=== PATIENT | male | born 1950 | race Caucasian/White ===

== ENCOUNTER 2017-12-30 22:41 | Inpatient (IN) | payer OTHER, BC ==
[~2017-12-30] VITALS: Ht 180.3 cm; Wt 92.1 kg
[2017-12-30 22:41] VITALS: BP 103/69
--- NOTE | 2017-12-30 22:41 | NUR ---
67/M BIBA FROM HOME FOR ALOC, HYPOTENSION. REPORTS PT HAD SUDDEN ONSET ALOC 3 HOURS AGO, LAST NORCO TAKEN 3 HRS AGO. PER EMS, PT HAD BP 90/60, HR 106, BS 168, ALTERED ON SCENE. PT AOX1 TO NAME, GCS 6, SEVERE WEAKNESS NOTED. SKIN INTACT, DRY, JAUNDICED, PALE. LUNG SOUNDS CLEAR BL. ABD SOFT ROUND LARGE NONTENDER ASCITIC, BS ACTIVE X4. PT WAS STARTED ON 500ML NS BOLUS, IV ON R AC 20G. L UPPER CHEST LILY-CATH NOTED. BLE EDEMA +4 PITTING NOTED. PT PLACED ON MONITOR. ER MD MADE AWARE.
--- NOTE | 2017-12-30 22:41 | NUR ---
[facility]. PT TRANSFERED FROM [facility] TO BED 1. EMS, NURSNIG STAFF, ANF DR. RED AT BEDSIDE FOR EVALUATION.
--- NOTE | 2017-12-30 23:00 | NUR ---
PT DRY HEAVING, EMESIS X1. ER MADE AWARE.
[2017-12-30] MEDS ORDERED: NACL 0.9% 500 ML IV SCH (23:06)
[2017-12-30] MEDS ORDERED: ACET-787 PO (23:09)
[2017-12-30] MEDS ORDERED: LACT10SO60 PO (23:09)
[2017-12-30] MEDS ORDERED: HYDR10TA1 PO (23:09)
[2017-12-30] MEDS ORDERED: ETOMIDATE 20 MG/10 ML VIAL IVP ONE (23:10)
[2017-12-30] MEDS ORDERED: PROPOFOL 1000 MG/100 ML PREMIX 100 ML IV ONE (23:10)
[2017-12-30] MEDS ORDERED: B2/V1TAB PO (23:10)
[2017-12-30] MEDS ORDERED: SUCCINYLCHOLINE CHLORIDE 200 MG/10 ML VIAL IVP ONE (23:10)
[2017-12-30] MEDS ORDERED: PIPERACILLIN/TAZOBACTAM 4.5 GM in DEXTROSE 5% 100 ML IV ONE (23:10)
[2017-12-30] MEDS ORDERED: ZAR2.5 PO (23:11)
[2017-12-30] MEDS ORDERED: SAL1 PO (23:12)
[2017-12-30] MEDS ORDERED: PANT40EC28 PO (23:12)
--- NOTE | 2017-12-30 23:15 | NUR ---
PT'S FAMILY EXPRESSING CONCERNS ABOUT INTUBATION. EXPLAINED TO PT THAT PT IS VOMITING WITH ALTERED CONSCIOUSNESS, MAY NEED TO BE INTUBATED TO PREVENT RESPIRATORY ARREST. PT AGREED TO HAVE FULL TREATMENT/FULL CODE FOR PT. MADE AWARE, MD TO SPEAK WITH PT'S FAMILY.
[2017-12-30] MEDS ORDERED: PIPERACILLIN/TAZOBACTAM 2.25 GM VIAL IV ONE (23:23)
--- NOTE | 2017-12-30 23:30 | NUR ---
DR RED SPOKE WITH PT'S FAMILY. PT'S FAMILY AGREED TO INTUBATION AND FULL TREATMENT.
--- NOTE | 2017-12-30 23:45 | NUR ---
PATIENT INTUBATED BY DR. RED WITH 7.5 ETT @25CM TEETH. BREATH SOUNDS BILATERAL, ETCO2 POSITIVE FOR GAS EXCHANGE, HR 94 SAO2-100% RR 14BPM. X-RAY DONE WHICH CONFIRMED PLACEMENT OF ETT. PLACED ON VENTILATOR AC-14, VT-500, FIO2-50% PEEP+5, ABG DONE AT 0047 AND RESULTS IN SYSTEM. NO SECRETIONS AT THIS TIME SO WAS UNABLE TO OBTAIN SPUTUM CULTURE
--- NOTE | 2017-12-30 23:45 | NUR ---
TIMEOUT PERFORMED FOR INTUBATION. DR RED, 2 FLIGHT OPERATIONS ENGINEER, EMT AND RT AT BEDSIDE. VSS. INTUBATION PROCEDURE STARTED.
--- NOTE | 2017-12-30 23:46 | NUR ---
PT INTUBATED WITHOUT PROBLEMS. PT TOLERATED WELL. TIME OUT CALLED. RT, RN, EMT AND MD AT BEDSIDE. FAMILY AT BEDSIDE
[2017-12-30 23:50] VITALS: BP 92/65
[2017-12-30 23:50] LABS: BASOPHILS % (AUTO) 0.3 % (0.0-2.0); HEMOGLOBIN 11.5 g/dL (12.0-18.0); LYMPHOCYTES # (AUTO) 0.3 K/uL (2.0-11.5); MEAN CORPUSCULAR HEMOGLOBIN 38 pg (27-31); MEAN CORPUSCULAR HGB CONC 33 g/dL (33-37); MEAN CORPUSCULAR VOLUME 114.2 fL (80-94); MONOCYTES # (AUTO) 0.9 K/uL (0.8-1.0); MONOCYTES % (AUTO) 10.6 % (1.7-9.3); NEUTROPHILS # (AUTO) 7.7 K/uL (1.8-7.7); NEUTROPHILS % (AUTO) 85.7 % (42.2-75.2); PLATELET COUNT (AUTO) 68 K/uL (140-450); RED BLOOD CELL COUNT(AUTO) 3.06 MIL/uL (4.20-6.10)
[2017-12-31] VITALS (64 sets, daily range): BP systolic 78–116; BP diastolic 28–71
--- NOTE | 2017-12-31 00:01 | NUR ---
PER MD, INCREASE PROPOFOL INFUSION TO 10MCG/KG/ML. VSS AT THIS TIME.
[2017-12-31 00:10] LABS: PROTHROMBIN TIME 16.4 secs (10.8-13.4)
[2017-12-31 00:11] LABS: ALBUMIN 2.5 g/dL (3.4-5.0); ANION GAP 18.4 (8-16); ASPARTATE AMINOTRANSFERASE 59 U/L (15-37); CARBON DIOXIDE 16.5 mmol/L (21-32); CHLORIDE 104 mmol/L (98-107); CREATININE 1.6 mg/dL (0.7-1.3); GFR ARICAN-AMERICAN 56 mL/min (>90); GLUCOSE 123 mg/dL (74-106); LIPASE 559 U/L (73-393); POTASSIUM 5.9 mmol/L (3.5-5.1); SODIUM SERUM 133 mmol/L (136-145)
[2017-12-31 00:14] LABS: LYMPHOCYTES % (AUTO) 3.4 % (20.5-51.1); RED CELL DISTRIBUTION WIDTH 20.6 % (11.6-13.7)
--- NOTE | 2017-12-31 00:15 | NUR ---
PT TO CT VIA LUCY WITH RT/RN AND EMT IN STABLE CONDITION. FAMILY INFORMED OF PT STATUS AT THIS TIME, APPROPRIATE QUESTIONS ASKED . FAMILY TEARFUL AND EMOTIONAL AT THIS TIME.
[2017-12-31 00:26] LABS: UREA NITROGEN, BLOOD 109 mg/dL (7-18)
[2017-12-31 00:27] LABS: CREATINE KINASE MB 5.7 ng/mL (0-3.6)
[2017-12-31] MEDS ORDERED: NACL 0.9% 1,000 ML IV ONE ×2 (00:45→02:05)
--- NOTE | 2017-12-31 01:04 | NUR ---
ER MD AT BEDSIDE TO SPEAK WITH PT'S FAMILY. BP 84/59, HR 83, SPO2 100% ON VENT, RR 14. MD AWARE.
[2017-12-31 01:05] LABS: APPEARANCE,URINE CLEAR (CLEAR); BLOOD, URINE TRACE-I (NEGATIVE); COLOR,URINE YELLOW (YELLOW); LEUKOCYTE ESTERASE ,URINE NEGATIVE (NEGATIVE); NITRITE, URINE NEGATIVE (NEGATIVE); UGLUCOSE NEGATIVE (NEGATIVE)
[2017-12-31 01:11] LABS: BARBITURATE, URINE NEG. ng/ml (NEG <=200); BENZODIAZEPINE, URINE NEG. ng/mL (NEG <=200); CANNABINOID, URINE NEG. ng/mL (NEG <=50); COCAINE, URINE NEG. ng/mL (NEG <=300); OPIATE, URINE POS. ng/mL (NEG <=2000); PHENCYCLIDINE SCREEN,URINE NEG. ng/mL (NEG <=25)
--- NOTE | 2017-12-31 01:20 | NUR ---
RT AT BEDSIDE. PT STARTING TO BECOME RESPONSIVE, MOVING ARMS, PER ER MD, INCREASE PROPOFOL TO 15MCG/KG/HR. VS NOTED.
[2017-12-31] MEDS ORDERED: ROCURONIUM 50 MG/5 ML VIAL IV ONE ×2 (01:35→01:55)
[2017-12-31] MEDS ORDERED: LACTULOSE 20 GM/30 ML UDC PO ONE (01:40)
--- NOTE | 2017-12-31 01:40 | NUR ---
NOTIFIED BY PT'S FAMILY THAT PT IS STILL BECOMING MORE RESPONSIVE, LIFTING R ARM UP. NOTIFIED MD, PER MD, INCREASE PROPOFOL TO 20MCG/KG/MIN. WILL MONITOR PT.
--- NOTE | 2017-12-31 01:45 | NUR ---
INDIVIDUAL HUBERT RANGEL UNAVAILABLE FROM [facility] AT THIS TIME, CALLED CHEMISTRY RESEARCH ASSISTANT
[2017-12-31] MEDS ORDERED: ONDANSETRON 4 MG/2 ML VIAL IVP PRN (01:55)
[2017-12-31] MEDS ORDERED: ACETAMINOPHEN 325 MG TAB PO PRN (01:55)
--- NOTE | 2017-12-31 02:20 | NUR ---
PT WAS AMBU BAG FROM ER TO ICU 3, WITHOUT ANY INCIDENTS.PLACED PT ON THE VENT WITH THE SAME VENT SETTINGS , VENT CK DONE, NO DISTRESS NOTED, PT IS ON PROPOFOL
--- NOTE | 2017-12-31 02:20 | NUR ---
PT STILL TRYING TO LIFT R ARM OCCASIONALLY, VS NOTED, ADMINISTERED ROCURONIUM IVP ORDERED. NG TUBE INSERTED TO R NARE, PT TOLERATED WELL.
--- NOTE | 2017-12-31 02:21 | NUR ---
DECREASE PROPOFOL TO 15MCG/KG/MIN PER MD
--- NOTE | 2017-12-31 02:29 | NUR ---
XR TO VERIFY NG PLACEMENT ON ICU, ENDORSED LACTULOSE ADMINISTRATION TO SAAS ARCHITECT.
--- NOTE | 2017-12-31 02:30 | NUR ---
Patient will be admitted to care of DR. BYRD. Admited to ICU. Will go to room 3. Belongings list completed. Report to BEATA ALFORD.
--- NOTE | 2017-12-31 02:30 | NUR ---
RECEIVED PT FROM ER VIA GURNEY.PT TRANSFERRED TO ICU 3.MONITORS ATTACHED.ST WITH BBB NOTED ON MONITOR.ORALLY INTUBATED FIO2 40% TV 500 AC14 PEEP 5.W/NGT TO RT NARES INTACT.CXR FOR PLACEMENT VERIFICATION DONE.AWAITING RESULT.W/LILY CATH TO RT CHEST INTACT.PROPOFOL 15 MCG/KG/MIN. PERIPHERAL IV TO RT G22 INTACT INFUSING ORDERED IVF.ABDOMEN DISTENDED.W/ JONES CATHETER TO BSD DRAINING SMALL AMT OF YELLOW URINE.W/PITTING EDEMA +3 TO BLE AND BOTH HANDS.SKIN INTACT.FLACC 0
[2017-12-31 02:38] LABS: BILIRUBIN,URINE 1+ (NEGATIVE)
--- NOTE | 2017-12-31 02:41 | NUR ---
Note aide in ED - 12/31/17 at 0249 by VIRAL Patient will be admitted to care of DR. BYRD. Admited to ICU. Will go to room 3. Belongings list completed. Report to BEATA ALFORD.
[2017-12-31] MEDS: NACL 0.9% 1,000 ML IV SCH ×2 (02:59→15:45)
[2017-12-31 03:15] LABS: FREE T4 (FREE THYROXINE) 1.05 ng/dL (0.76-1.46); MAGNESIUM 2.7 mg/dL (1.8-2.4); PHOSPHORUS 4.9 mg/dL (2.5-4.9); THYROID STIMULATING HORMONE 2.65 uIU/mL (0.34-3.74)
--- NOTE | 2017-12-31 03:46 | NUR ---
DR RHODES AT BEDSIDE.SPOKE WITH PTS AND DAUGHTER.
[2017-12-31] MEDS ORDERED: DEXTROSE 50% 50 ML SYR IVP PRN (03:55)
[2017-12-31] MEDS ORDERED: SODIUM POLYSTYRENE 15 GM/60 ML UDBTL NG ONE (03:55)
--- NOTE | 2017-12-31 04:00 | NUR ---
oral care using vap kit rendered.pt afebrile.flacc 0.repositioned.
--- NOTE | 2017-12-31 04:15 | NUR ---
NOTED NGT COILED IN THE MOUTH.REMOVED.OGT INSERTED, PLACEMENT VERIFIED WITH TIEN RUSSO RN. RODOLFO GRAJEDA.FLACC 0.
[2017-12-31] MEDS ORDERED: LACTULOSE 20 GM/30 ML UDC NG ONE (05:00)
--- NOTE | 2017-12-31 05:25 | NUR ---
phone call to after hour pharmacist regarding zosyn, made aware the last dose was given at 2358 in er, she said ok to give now.
[2017-12-31] MEDS: PIPER/TAZO 2.25GM/D5W PREMIX 50 ML IV SCH ×3 (05:29→21:06)
[2017-12-31] MEDS ORDERED: PIPERACILLIN/TAZOBACTAM 2.25 GM VIAL IV ONE (05:37)
--- NOTE | 2017-12-31 06:51 | NUR ---
REC'D PT ON [place] VENT SETTINGS AC 14 VT 5OO PEEP 5 FIO2 50% ALARMS ON AND AUDIBLE VENT IS PLUGGED INTO RED OUTLET, AMBU BAG AT SIDE OF VENT, SXN PT SMALL AMT OF FROTHY WHITE SECRETIONS, B\S ARE CLEAR, PT IS ORALLY INTUBATED WITH 7.5 ET TUBE SECURED WITH ANCHOR FAST AT 25 CM AT MIDLINE AND SKIN INTEGRITY IS INTACT. PT IS RESTING WITH NO SIGNS OF DISTRESS NOTED Addendum: 12/31/17 at 0753 by Anita Turner RT fio2 40%
[2017-12-31] MEDS ORDERED: LORazepam 2 MG/ML VIAL IVP SCH (07:05)
--- NOTE | 2017-12-31 07:30 | NUR ---
RECEIVED PT FROM PM NURSE, PT ON PROPOFOL DRIP, UNABLE TO FOLLOW COMMANDS. PUPILS SLUGGISH. BEDSIDE MONITOR SHOWS ST-SR. ETT TO VENT WITH FIO2=40%, TV 500, RR 14, PEEP 5. PT ABD EXTENDED, BLE HAS PITTING EDEMA +3, JONES CATH IN PLACE WITH SMALL AMOUNT OF CLOUDY URINE NOTED. ALL EXTREMITIES ARE FLACCID. PT HAS IV TO RIGHT AC AND PERMA CATH TO RIGHT CHEST, BOTH ARE INTACT AND PATENT. REDNESS TO SACRAL AREA NOTED AND BRUISE TO RIGHT FOOT THE SECOND DIGITS NOTED. HOB HOB 30 DEGREES WITH LOW BED POSITION, CALL LIGHT IN REACH , WILL CONTINUE TO MONITOR.
[2017-12-31 07:32] LABS: BASOPHILS % (AUTO) 0.4 % (0.0-2.0); EOSINOPHILS % (AUTO) 0.1 % (0.0-4.0); HEMATOCRIT 40.4 % (36-52); LYMPHOCYTES # (AUTO) 0.5 K/uL (2.0-11.5); LYMPHOCYTES % (AUTO) 6.8 % (20.5-51.1); MEAN CORPUSCULAR HEMOGLOBIN 38 pg (27-31); MEAN CORPUSCULAR HGB CONC 32 g/dL (33-37); MEAN CORPUSCULAR VOLUME 116.7 fL (80-94); MONOCYTES # (AUTO) 0.4 K/uL (0.8-1.0); MONOCYTES % (AUTO) 5.3 % (1.7-9.3); NEUTROPHILS % (AUTO) 87.4 % (42.2-75.2); PLATELET COUNT (AUTO) 103 K/uL (140-450); RED BLOOD CELL COUNT(AUTO) 3.46 MIL/uL (4.20-6.10); RED CELL DISTRIBUTION WIDTH 21.6 % (11.6-13.7); WHITE BLOOD COUNT (AUTO) 6.8 K/uL (4.8-10.8)
[2017-12-31 07:39] LABS: CHOL/HDL RATIO 5.3 (1-4.5)
[2017-12-31] MEDS ORDERED: PROPOFOL 1000 MG/100 ML PREMIX 100 ML IV PRN (08:00)
[2017-12-31] MEDS: BLOOD GLUCOSE MONITORING 1 DEV DEV FS SCH ×4 (08:11→21:05)
--- NOTE | 2017-12-31 08:30 | NUR ---
HOLD PROPOFOL DRIP AT 0815, CHARGE NURSE VAISHALI AND DR. OSMAN AWARE. THEY ALSO AWARE PT STILL UNRESPONSIVE AFTER HOLD PROPOFOL. MAGNUS CARE GIVEN AND ORAL CARE GIVEN.
[2017-12-31] MEDS: DOCUSATE SODIUM 100 MG GELCAP PO SCH ×2 (08:53→21:06)
[2017-12-31] MEDS: PANTOPRAZOLE 40 MG INJ VIAL IVP SCH (08:55)
--- NOTE | 2017-12-31 09:02 | NUR ---
PATIENT HAS BEEN SCREENED AND CATEGORIZED HIGH NUTRITION RISK. PATIENT WILL BE SEEN WITHIN 1-2 DAYS OF ADMISSION. 12/31/17 01/01/[address]
--- NOTE | 2017-12-31 09:16 | NUR ---
vent check, no sxn needed airway is patent and pt is resting
[2017-12-31] MEDS ORDERED: NACL 0.9% 500 ML IV SCH (10:55)
--- NOTE | 2017-12-31 10:55 | NUR ---
DR. ORDONEZ NEPHROLOGY IN TO CHECK PATIENT AND HAVE COMMUNICATION WITH PT'S AND DAUGHTER.
--- NOTE | 2017-12-31 11:18 | NUR ---
VENT CHECK PT 25 CM LIP LINE CLEAR BILAT BS NO SUCTION NEEDED AT THIS TIME SUPER STERNAL RETRACTIONS INCREASED RESPIRATORY EFFORT. FAMILY AT BEDSIDE
[2017-12-31 11:34] LABS: CARBON DIOXIDE 13.3 mmol/L (21-32); CREATININE 1.9 mg/dL (0.7-1.3)
--- NOTE | 2017-12-31 11:45 | NUR ---
MADE CHARGE NURSE VAISHALI AND DR. OSMAN AWARE PT STILL UNRESPONSIVE.
[2017-12-31] MEDS: ALBUMIN HUMAN 25% 100 ML IV SCH ×2 (12:04→21:06)
[2017-12-31] MEDS: HYDROCORTISONE NA SUCC 100 MG/2 ML VIAL IV SCH ×2 (12:04→21:06)
[2017-12-31 12:25] LABS: POTASSIUM 6.3 mmol/L (3.5-5.1)
--- NOTE | 2017-12-31 12:25 | NUR ---
CRITICAL REPORT K 6.3, BUN 115, AND CA 7.7 RECEIVED, REPORT TO DR. TAYLOR.
[2017-12-31] MEDS ORDERED: SODIUM BICARBONATE 8.4% 50 MEQ in NACL 0.9% 1,000 ML IV SCH (12:30)
[2017-12-31] MEDS ORDERED: INSULIN REGULAR, HUMAN 100 UNIT/ML VIAL IV SCH (12:36)
[2017-12-31] MEDS ORDERED: DEXTROSE 50% 50 ML SYR IVP SCH ×2 (12:37→20:30)
[2017-12-31] MEDS ORDERED: LACTULOSE 20 GM/30 ML UDC PO SCH ×2 (13:00→18:00)
[2017-12-31] MEDS ORDERED: SODIUM BICARBONATE 8.4% PFS 50 MEQ/50 ML SYR IVP SCH (13:21)
--- NOTE | 2017-12-31 13:35 | NUR ---
VENT CHECK DONE PT SLEEPING RESPONDS TO STIMULI FAMILY AT BEDSIDE SUCTIONED MODERATE AMOUNT OF THIN YELLOW SECRETIONS REDUCED FIO2 TO 30%
--- NOTE | 2017-12-31 13:53 | NUR ---
FREQUENT NON-PURPOSEFUL MOVEMENT NOTED. FAMILY AT BEDSIDE, RESTARTED PROPOFOL DRIP AT 5 MCG/KG/MIN
[2017-12-31] MEDS ORDERED: MAGNESIUM CITRATE 300 ML BTL PO SCH (14:30)
--- NOTE | 2017-12-31 15:10 | NUR ---
VENT CHECK, NO SXN NEEDED PT RESTING DECREASED FIO2 TO 28%
--- NOTE | 2017-12-31 15:20 | NUR ---
TURNED AND REPOSITIONED PT, PT HAD LARGE AMOUNT OF LOOSE BM. CLEANED PT. NOTIFIED DR. TAYLOR REGARDING BM AND CITROMA ORDER. PER DR. TAYLOR, HOLD CITROMA AND WAIT FOR 1630 AMMONIA, IF IT IS STILL HIGH, GIVE CITROMA, IF IT IS DECREASED, SHE WILL CANCEL THE ORDER. WILL CARRY OUT.
--- NOTE | 2017-12-31 15:54 | NUR ---
WOUND CARE EVALUATION NOTE: REASON FOR EVALUATION: LOW KEHINDE SCORE SKIN ASSESSMENT DONE WITH PRIMARY RN WITH THIS 67 Y/O MALE PT ADMITTED TO [facility] WITH INITIAL DX. ALOC, AND ABNORMAL LABS. PAST MEDICAL HX INCLUDES HTN, COPD, DM, A FIB,AND 12/16/2017 AY [facility] FOR IMMUNO THERAPY. ALL ABOVE INFORMATION OBTAINED FROM ADMISSION H&P. LABS ARE WBC 9.0, H/H 11.5/35, GLUCOSE 111 AND ALBUMIN 2.5. PT IS AWAKE. SKIN IS COLD AND DRY, UPPER EXTREMITIES MULTIPLE ECCHYMOSIS. BLE NO HAIR GROWTH, +3 EDEMA. DORSAL PEDAL PULSES UNABLE TO PALPATE DUE TO EDEMA. CAPILLARY REFILLED < 2 SEC. INCONTINENT OF BOWEL AND X1 DURING ASSESSMENT. PLAN OF CARE DISCUSSED WITH PRIMARY RN. AT BEDSIDE PLAN DISCUSSED. INTEGUMENTARY: -PRESSURE INJURY STAGE 1 TO SACROCOCCYX, 4X2CM -IAD TO RIGHT AND LEFT INNER BUTTOCKS EXTENDED TO PERIANAL SKIN INTACT. -OLD HEALED SCARS TO RLE -RIGHT 2ND TOE, BRUISES SKIN INTACT. (PER IT GOT HIT BY A CANE) RECOMMENDATIONS: -KEEP SKIN DRY AND CLEAN AT ALL TIMES, PLEASE CHECK Q2H AND PRN FOR INCONTINENCY OF BOWEL AND BLADDER. -APPLY HYDRAGUARD TO SACRALCOCCYX AND R/L INNER BUTTOCKS BIDWC AND PRN IF SOILING -APPLY FORM DRESSING TO SACROCOCCY Q7 DAYS AND PRN IF SOILING PREVENTION -OFFLOAD BILATERAL HEELS BY PLACING PILLOWS UNDER CALVES UNLESS OTHERWISE CONTRAINDICATED -PRESSURE REDISTRIBUTION SURFACE THERAPY -TURN AND REPOSITION Q2H, OFFLOAD SACRALCOCCYX AND BUTTOCKS BY TURNING RIGHT AND LEFT -CONTINUE TO FOLLOW RD RECOMMENDATIONS ALL ABOVE RECOMMENDATIONS DISCUSSED WITH PRIMARY RN.AND DR. CORDOVA WILL FOLLOW UP PT Q7-10 DAYS. PLEASE CONTACT WOUND CARE NURSE FOR ANY QUESTION AND CHANGE OF WOUND CONDITION.
--- NOTE | 2017-12-31 16:20 | NUR ---
PT STOMACH RESIDUAL CHECKED 120 MLS, HOLD TUBE FEEDING, CHARGE NURSE VAISHALI AND AWARE. WILL RECHECK RESIDUAL ONE HOUR LATER.
[2017-12-31 16:47] LABS: ANION GAP 18.2 (8-16); CARBON DIOXIDE 16.4 mmol/L (21-32); CREATININE 1.7 mg/dL (0.7-1.3); POTASSIUM 5.6 mmol/L (3.5-5.1)
[2017-12-31] MEDS: SENNA 8.6 MG TAB PO SCH (17:34)
[2017-12-31] MEDS: LACTULOSE 20 GM/30 ML UDC PO SCH (17:34)
--- NOTE | 2017-12-31 17:46 | NUR ---
PT HAD BM AGAIN, CLEANED PT WITH CHARGE NURSE VAISHALI AND HS. GOWN CHANGED, WHOLE BED CHANGED. STOMACH RESIDUAL CHECKED LESS THAN 50 MLS, STARTED PT ON VITAL AF 1.2 AT 5MLS/HR. PLACEMENT CHECKED. PT'S AT BEDSIDE.
--- NOTE | 2017-12-31 19:20 | NUR ---
REPORT GIVEN TO PM NURSE.
--- NOTE | 2017-12-31 19:30 | NUR ---
RECEIVED REPORT FROM MORNING RN FOR CONTINUITY OF CARE. VS STABLE AT THIS TIME. PERRL. PT SEDATED. UNABLE TO MAKE NEEDS KNOWN. UNABLE TO FOLLOW COMMANDS. S1+S2 HEARD. SR TO ST ON MONITOR. BP ON THE LOW SIDE BUT PER REPORT IT IS THE PT NORMAL PER FAMILY. LUNG SOUNDS CLEAR BUT DIMINISHED. ETT TO VENT WITH SETTINGS: FIO2 28%, AC15, TV 500 AND PEEP 5. OGT TO FEEDING. ABDOMEN ROUND, SOFT AND LARGE. BS ACTIVE IN ALL QUADRANTS. OGT PLACEMENT CHECKED. PT CURRENTLY ON VITAL AF AT 5ML/HR. WILL INCREASE PER ORDER. PT HAS JONES CATHETER AND DRAINING CLEAR AND YELLOW URINE. PT HAS PORTACATH ON RIGHT CHEST THAT IS BEING USED FOR PROPOFOL DRIP AT 5MCG. RECEIVED PT WITH RIGHT AC 20G PERIPHERAL IV ACCESS THAT IS PATENT, INTACT AND ASYMPTOMATIC. HOB AT 30 DEGREES. ALL SAFETY PRECAUTIONS ARE IN PLACE. BED AT LOW POSSIBLE POSITION. WILL CONTINUE TO MONITOR PT.
--- NOTE | 2017-12-31 20:05 | NUR ---
PT NOTED WITH BM THAT SOFT TO LOOSE THAT IS LARGE. YELLOW TO BROWN IN COLOR. PT CURRENTLY ON LACTULOSE. PT TOLERATED BEING TURNED AND REPOSITIONED. HOB KEPT AT 30 DEGREES. BED AT LOW POSSIBLE POSITION. ALL SAFETY PRECAUTIONS ARE IN PLACE. WILL CONTINUE TO MONITOR PT.
[2017-12-31] MEDS ORDERED: INSULIN REGULAR, HUMAN 100 UNIT/ML VIAL SUBQ SCH (20:30)
[2017-12-31] MEDS ORDERED: RIFAXIMIN 550 MG TAB PO SCH (21:00)
--- NOTE | 2017-12-31 21:20 | NUR ---
PT PERIPHERAL IV LINE ON RIGHT AC WAS NOTED TO BE LEAKING AND THERE IS SLIGHT REDNESS ON SITE. IV LINE REMOVED AND WILL INSERT A NEW LINE.
--- NOTE | 2017-12-31 21:40 | NUR ---
NEW IV LINE INSERTED. FAMILY AT BEDSIDE CURRENTLY.
--- NOTE | 2017-12-31 23:45 | NUR ---
VS STABLE AT THIS TIME. NO CHANGE IN CONDITION. PT STILL ON PROPOFOL DRIP AT 5MCG. RASS -3 AT THIS TIME. PT HAD ANOTHER BM THAT IS LOOSE AND MODERATE IN AMOUNT. STOOL IS YELLOW TO BROWN IN COLOR. WILL CONTINUE TO MONITOR PT.
[2018-01-01] VITALS (64 sets, daily range): BP systolic 77–118; BP diastolic 48–74
[2018-01-01] MEDS ORDERED: LACTULOSE 20 GM/30 ML UDC ONE ×3 (00:42→03:22)
[2018-01-01] MEDS: NACL 0.9% 1,000 ML IV SCH ×4 (00:56→23:15)
[2018-01-01] MEDS: LACTULOSE 20 GM/30 ML UDC PO SCH ×4 (00:56→21:18)
[2018-01-01] MEDS: HYDRAGUARD CREAM TP SCH ×2 (00:56→13:08)
--- NOTE | 2018-01-01 02:15 | NUR ---
PT STILL SEDATED WITH PROPOFOL. AFEBRILE. RASS -3. FLACC 0. DOES NOT APPEAR TO BE IN ANY SIGNS OF DISTRESS OR DISCOMFORT. ALL SAFETY PRECAUTIONS ARE STILL IN PLACE. PERIPHERAL IV ACCESS HAS GOOD BACKFLOW. WILL CONTINUE TO MONITOR PT.
--- NOTE | 2018-01-01 04:15 | NUR ---
MORNING CARE PROVIDED TO PT. TOLERATED BEING TURNED AND REPOSITIONED WELL. PT AWAKE AT THIS TIME AND NODS TO INSTRUCTIONS. PT HAD ANOTHER BM. STILL ON PROPOFOL AT 10MCG. KEPT HOB AT 30 DEGREES. ALL SAFETY PRECAUTIONS ARE IN PLACE. WILL CONTINUE TO MONITOR PT.
[2018-01-01] MEDS ORDERED: ALBUMIN HUMAN 25% 100 ML IV ONE ×2 (04:43→14:10)
[2018-01-01] MEDS: ALBUMIN HUMAN 25% 100 ML IV SCH ×3 (04:50→21:19)
[2018-01-01] MEDS: PIPER/TAZO 2.25GM/D5W PREMIX 50 ML IV SCH ×3 (04:50→21:18)
[2018-01-01] MEDS: HYDROCORTISONE NA SUCC 100 MG/2 ML VIAL IV SCH ×3 (04:50→21:17)
[2018-01-01 05:12] LABS: HEMATOCRIT 31.3 % (36-52); LYMPHOCYTES # (AUTO) 0.2 K/uL (2.0-11.5); LYMPHOCYTES % (AUTO) 3.5 % (20.5-51.1); MEAN CORPUSCULAR HEMOGLOBIN 39 pg (27-31); MEAN CORPUSCULAR HGB CONC 34 g/dL (33-37); MEAN CORPUSCULAR VOLUME 113.5 fL (80-94); MONOCYTES # (AUTO) 0.5 K/uL (0.8-1.0); MONOCYTES % (AUTO) 9.1 % (1.7-9.3); NEUTROPHILS # (AUTO) 5.3 K/uL (1.8-7.7); NEUTROPHILS % (AUTO) 87.4 % (42.2-75.2); PLATELET COUNT (AUTO) 45 K/uL (140-450); RED BLOOD CELL COUNT(AUTO) 2.75 MIL/uL (4.20-6.10); RED CELL DISTRIBUTION WIDTH 20.7 % (11.6-13.7)
[2018-01-01 05:40] LABS: CARBON DIOXIDE 17.4 mmol/L (21-32); CREATININE 1.6 mg/dL (0.7-1.3); POTASSIUM 4.4 mmol/L (3.5-5.1)
[2018-01-01 05:42] LABS: MAGNESIUM 2.7 mg/dL (1.8-2.4); PHOSPHORUS 4.7 mg/dL (2.5-4.9)
--- NOTE | 2018-01-01 06:19 | NUR ---
PT DOES NOT APPEAR TO BE IN ANY PAIN. RASS -3 AT THIS TIME. VS STABLE. NO CHANGE IN CONDITION. WILL CONTINUE TO MONITOR PT.
--- NOTE | 2018-01-01 06:25 | NUR ---
DR. TAYLOR AT BEDSIDE TO SEE PT. WILL FOLLOW-UP WITH ANY NEW ORDER.
[2018-01-01] MEDS: BLOOD GLUCOSE MONITORING 1 DEV DEV FS SCH ×5 (06:36→21:25)
[2018-01-01] MEDS ORDERED: DEXTROSE 50% 50 ML SYR IVP PRN (06:40)
[2018-01-01 06:41] LABS: HEMOGLOBIN 10.7 g/dL (12.0-18.0)
--- NOTE | 2018-01-01 07:10 | NUR ---
REPORT GIVEN TO MORNING RN FOR CONTINUITY OF CARE. VS STABLE AT THIS TIME. ENDORSED TO MORNING SHIFT TO ADMINISTER INSULIN PER SLIDING SCALE WHEN ORDER INPUT BY MD.
--- NOTE | 2018-01-01 07:30 | NUR ---
RECEIVED PT FROM PM NURSE, PT SEDATED, ON PROPOFOL 10 MCG/KG/MIN, RASS -3. BEDSIDE MONITOR SHOWS SR. ETT TO VENT WITH SETTING FIO2 40%, O2 SATS 99%. PT HAS IV TO LEFT FOREARM # 22 RUNNING 0.9 NS AT 125 MLS/HR.,SITE INTACT AND PATENT. PITTING EDEMA TO BOTH LOWER EXTREMITIES. JONES CATH IN PLACE WITH SMALL AMOUNT OF YELLOW URINE NOTED. PT ALSO HAS OG TUBE FEEDING VITAL AF AT 15 MLS/HR, RESIDUAL CHECKED, NONE. SKIN NON INTACT( SEE WOUND ASSESSMENT) HOB ELEVATED 30 DEGREES WITH LOW BED POSITION. WILL CONTINUE TO MONITOR.
[2018-01-01] MEDS: INSULIN LISPRO SLIDING SCALE 100 UNITS/ML VIAL SUBQ PRN ×3 (07:56→21:46)
[2018-01-01] MEDS: DOCUSATE SODIUM 100 MG GELCAP PO SCH ×2 (08:06→21:18)
[2018-01-01] MEDS: SENNA 8.6 MG TAB PO SCH ×2 (08:07→13:00)
[2018-01-01] MEDS: PANTOPRAZOLE 40 MG INJ VIAL IVP SCH (08:07)
--- NOTE | 2018-01-01 08:09 | NUR ---
RECEIVED ON A [employer] R860 VENTILATOR PLUGGED INTO RED OUTLET TOLERATING WELL WITHOUT ADVERSE REACTIONS NOTED TO AN ENDOTRACHEAL TUBE #7.5 SECURED AT 25cm TEETH/GUM LINE WITH AN ANCHOR FAST CUFF PRESSURE CHECKED NOTED AMBU BAG NOTED AT [facility] LOC AWAKE BREATH SOUNDS RHONCHI BILATERAL WITH GOOD CHEST RISE ENDOTRACHEAL SUCTION FOR COPIOUS THICK YELLOW SECRETIONS AIRWAY PATENT Addendum: 01/01/18 at 0851 by Law Miles RT SATURATION 100% ON FIO2 OF 40% TITRATED FIO2 TO 30% ANIYAH/BEATA NOTIFIED
--- NOTE | 2018-01-01 09:01 | NUR ---
LATE ENTRY FOR 12/31/17 1230 MET WITH PT'S SON HEMALATHA AND PT'S DAUGHTER. DISCUSSED THEIR REQUEST FOR PT TO TRANSFER TO [facility] AND THEY STATED THAT DR TAYLOR HAD ALREADY EXPLAINED THAT THE PT IS NOT STABLE ENOUGH FOR TRANSFER AND THAT PT'S PHYSICIAN AT [facility] WOULD NEED TO BE IN AGREEMENT TO ACCEPT PT FOR ADMISSION TO [facility]. FAMILY VERY TEARFUL AND SEEM TO UNDERSTAND THE GRAVITY OF PT'S CONDITION BUT VERBALIZES THAT THEY ARE STILL HOPEFUL THAT IF PT IS ABLE TO HAVE IMMUNOTHERAPY HE IS SCHEDULED FOR AT [facility] HE WILL DO BETTER. PROVIDED SUPPORT TO FAMILY.
--- NOTE | 2018-01-01 09:30 | NUR ---
PT'S PRESENT TO BEDSIDE, UPDATED PT'S CONDITION. MADE THEM AWARE PT IS MUCH MORE RESPONSIVE THAN YESTERDAY.
--- NOTE | 2018-01-01 10:00 | NUR ---
TURNED AND REPOSITIONED PT WITH CHARGE NURSE, PT HAD BM, CLEANED PT AND APPLIED RECTAL BAG TO PT.
--- NOTE | 2018-01-01 10:26 | NUR ---
NO EVIDENCE OF PULMONARY DISTRESS NOTED BREATH SOUNDS CLEAR WITH GOOD CHEST RISE AND AERATION THROUGHOUT LUNG FEILDS AIRWAY PATENT Addendum: 01/01/18 at 1034 by Law AGUILERA SATURATION 99% ON FIO2 OF 30% TITRATED FIO2 TO 28% ANIYAH/BEATA NOTIFIED
--- NOTE | 2018-01-01 11:25 | NUR ---
AWAKE STABLE BREATH SOUNDS CLEAR BILATERAL WITH GOOD CHEST RISE AND AERATION THROUGHOUT LUNG GRIER AIRWAY PATENT
--- NOTE | 2018-01-01 11:30 | NUR ---
ANCHOR FAST NOW DESCENDING INTO ORAL AREA CHANGED AND REPOSITIONED ANCHOR FAST SECURED AT 25cm TEETH/GUM LINE TOLERATED PROCEDURE WELL WITHOUT INCIDENT
--- NOTE | 2018-01-01 12:00 | NUR ---
INCREASED TUBE FEEDING RATE TO 20 MLS/HR, RESIDUAL CHECKED. PT TOLERATED WELL.
--- NOTE | 2018-01-01 12:08 | NUR ---
INCREASED VT TO 550 L DUE TO AUTO PEEP
[2018-01-01] MEDS: HYDROcodone/APAP 7.5/325 MG 1 TAB PO PRN ×3 (12:23→20:52)
--- NOTE | 2018-01-01 14:10 | NUR ---
NO EVIDENCE OF RESPIRATORY DISTRESS NOTED TOLERATING VENTILATORY SUPPORT WITHOUT ADVERSE REACTIONS NOTED BREATH SOUNDS CLEAR BILATERAL WITH GOOD CHEST RISE AND AERATION THROUGHOUT LUNG GRIER AIRWAY PATENT DAUGHTER AT BEDSIDE
--- NOTE | 2018-01-01 14:50 | NUR ---
PT RESTING IN BED, NO S/S OF RESPIRATORY DISTRESS NOTED. AT BEDSIDE.
--- NOTE | 2018-01-01 15:14 | NUR ---
PT FAMILY AT BEDSIDE BS CLEAR BILATERAL THROUGHOUT TOLERATING VENT WELL GINGER SOLO Addendum: 01/01/18 at 1730 by Law Dawson RT Avni DAWSON, REVIEWED
--- NOTE | 2018-01-01 17:26 | NUR ---
PT SLEEPING TOLERATING VENT WELL BUT BREATHING ON TOP OF DELIVERED Vt ALARMING Vte IN THE 1200s PTS FAMILY IS AT BEDSIDE GINGER SOLO
--- NOTE | 2018-01-01 18:00 | NUR ---
TURNED AND REPOSITIONED PT. CLEANED PT. PT HAD 700 MLS URINE AND 400 MLS BM DURING DAY SHIFT. VITALS STABLE AT THIS MOMENT.
--- NOTE | 2018-01-01 19:30 | NUR ---
RECEIVED BEDSIDE REPORT FROM MORNING SHIFT RN, ANIYAH, FOR CONTINUITY OF CARE, FAMILY AT BEDSIDE AT THIS TIME. PERRL, ABLE TO UNDERSTAND/RESPOND TO COMMANDS. ETT TO VENT, FIO2=28, VT 550, RATE 14/MIN, FLOW 45L/MIN, PEEP=5, PMAX=40. PT IS ON HOLE PUNCHER STRAP HR 80-85 BPM.OGT TO FEED, VITALS AF AT 25ML/HR. NO RESIDUAL. JONES CATHETER IN PLACE, PATENT, URINE IS DARK YELLOW IN COLOR. BOWEL SOUNDS HYPOACTIVE IN ALL 4 QUADRANTS, RECTAL BAG IN PLACE WITH LOOSE WATERY STOOL. PERMACATH ON RIGHT UPPER CHEST. 20 GAUGE PIV ON LEFT HAND, INFUSING NS AT 125ML/MIN. SKIN IS WARM AND DRY TO TOUCH, BRUISING ON BILATERAL FOREARMS. 1+ PITTING EDEMA ON BILATERAL FEET. FALL RISK AND ALLERGY BAND ( LEVOFLOXACIN AND ATORVASTATIN). HOB ELEVATED ABOVE 30 DEG, SIDE RAILS UP X4, AND STANDARD PRECAUTIONS MAINTAINED. Addendum: 01/01/18 at 2246 by Tasha Cross RN CORRECTION 3+ PITTING EDEMA ON BILATERAL FEET.
--- NOTE | 2018-01-01 19:54 | NUR ---
received pt stable on vent support at documented settings, suctioned small amounts of thick yellow secretions, family at bedside, no resp distress or SOB noted at this time, 7.5 ETT secured and patent, alarms set and audible, ambu bag at bedside, vent plugged into red outlet, pulse ox on, will cont to monitor.
--- NOTE | 2018-01-01 23:00 | NUR ---
PT REPOSTIONED AND PILLOW SUPPORT PROVIDED. MITTS ON BOTH HANDS. OGT TO FEED AT 25ML/HR. NS INFUSING AT 125ML/ HR.
[2018-01-02] VITALS (17 sets, daily range): BP systolic 90–117; BP diastolic 63–82
--- NOTE | 2018-01-02 00:03 | NUR ---
RT AT BEDSIDE.
[2018-01-02] MEDS: HYDRAGUARD CREAM TP SCH ×2 (01:34→15:00)
[2018-01-02] MEDS: HYDROcodone/APAP 7.5/325 MG 1 TAB PO PRN ×3 (01:44→13:43)
--- NOTE | 2018-01-02 02:00 | NUR ---
INCREASED OGT FEEDING TO 30ML/ HR, PER ORDER.
--- NOTE | 2018-01-02 04:35 | NUR ---
LAB, RAY, AT BEDSIDE FOR BLOOD DRAW.
--- NOTE | 2018-01-02 04:35 | NUR ---
PT REFUSED BED BATH, TYLENOL GIVEN FOR HEADACHE.
[2018-01-02 05:08] LABS: BASOPHILS % (AUTO) 0.2 % (0.0-2.0); HEMATOCRIT 29.1 % (36-52); HEMOGLOBIN 9.8 g/dL (12.0-18.0); LYMPHOCYTES # (AUTO) 0.3 K/uL (2.0-11.5); LYMPHOCYTES % (AUTO) 4.5 % (20.5-51.1); MEAN CORPUSCULAR HEMOGLOBIN 39 pg (27-31); MEAN CORPUSCULAR HGB CONC 34 g/dL (33-37); MEAN CORPUSCULAR VOLUME 114.5 fL (80-94); MONOCYTES # (AUTO) 0.6 K/uL (0.8-1.0); MONOCYTES % (AUTO) 9.7 % (1.7-9.3); NEUTROPHILS % (AUTO) 85.6 % (42.2-75.2); PLATELET COUNT (AUTO) 32 K/uL (140-450); RED BLOOD CELL COUNT(AUTO) 2.54 MIL/uL (4.20-6.10); RED CELL DISTRIBUTION WIDTH 21.3 % (11.6-13.7); WHITE BLOOD COUNT (AUTO) 5.9 K/uL (4.8-10.8)
[2018-01-02] MEDS: PIPER/TAZO 2.25GM/D5W PREMIX 50 ML IV SCH ×3 (05:22→21:02)
[2018-01-02] MEDS: HYDROCORTISONE NA SUCC 100 MG/2 ML VIAL IV SCH ×3 (05:25→21:02)
[2018-01-02] MEDS: ALBUMIN HUMAN 25% 100 ML IV SCH (05:26)
[2018-01-02 05:51] LABS: ANION GAP 15.9 (8-16); CARBON DIOXIDE 17.6 mmol/L (21-32); CREATININE 1.3 mg/dL (0.7-1.3); POTASSIUM 3.5 mmol/L (3.5-5.1)
[2018-01-02 05:53] LABS: MAGNESIUM 2.7 mg/dL (1.8-2.4); PHOSPHORUS 3.6 mg/dL (2.5-4.9)
--- NOTE | 2018-01-02 06:05 | NUR ---
PT HAD BOWEL MOVEMENT, RECTAL BAG CAME LOOSE AND NEW ONE WAS PLACED IN. 250ML IN RECTAL BAG, STOOL IS PASTY/SOFT. CATHETER CARE PROVIDED. Addendum: 01/02/18 at 0744 by Tasha Cross RN NEW OPTIFORM DRESSING APPLIED TO SACRAL COCCYX AREA.
--- NOTE | 2018-01-02 06:36 | NUR ---
Called resident for critical value lab BUN 98, no new order received
--- NOTE | 2018-01-02 06:58 | NUR ---
RECEIVED INTUBATED PT WITH A 7.5 ETT SECURED @25 TEETH/GUMS ON VENT. SETTINGS AC 14, VT 550, PEEP 5 AND FIO2 28%. PT SUCTIONED OBTAINED MODERATE AMOUNT OF THICK YELLOW SECRETIONS, AIRWAY IS PATENT AND ETT IS SECURE. THERE IS NO BITING OR KINKING OF ETT. VENT IS PLUGGED INTO A RED OUTLET WITH ALARMS ON AND FUNCTIONING. WILL CONTINUE TO MONITOR.
[2018-01-02] MEDS: NACL 0.9% 1,000 ML IV SCH ×2 (07:15→17:35)
--- NOTE | 2018-01-02 07:17 | NUR ---
SEEN BY DR. SANTOS. UPDATED PT CONDITION.
--- NOTE | 2018-01-02 07:20 | NUR ---
PROVIDED BEDSIDE REPORT TO MORNING SHIFT RN, SHARLENE, FOR CONTINUITY OF CARE. INFORMED OF NEW RECTAL BAG PLACEMENT AND OPTIFORM DRESSING ON SACRAL WOUND.
--- NOTE | 2018-01-02 07:20 | NUR ---
RECEIVED REPORT FROM LEGAL SPECIALIST RN. PT RESTING IN BED. SR ON MONITOR. REDNESS ON LEFT CHEEK. SPONTANEOUS EYES OPENING, NON-VERBAL BUT RESPONSIVE. PUPILS REACTIVE TO LIGHT. ON ETT TO VENT AC 14, TV 550 FIO2 28% PEEP 5. LUNGS CLEAR ON AUSCULTATION. DISTENDED ABDOMEN. ACTIVE BOWEL SOUND. ON OG-TUBE FEEDING AT 30 ML/HR. RESIDUAL 10 ML. LEFT FOREARM PERIPHERAL LINE 22 G. INTACT. NS RUNNING AT 125 ML/HR. BRUISES ON BOTH UPPER EXTREMITIES. REDNESS NOTED ON BACK, RIGHT 2ND TOE AND FOOT. EDEMATOUS BOTH UPPER AND LOWER EXTREMITIES. ON JONES CATHETER DRAINING YELLOW URINE IN MINIMAL AMOUNT. NOTED ON RECTAL BAG. KEPT HOB ELEVATED. BED IN LOW POSITION LOCKED. CALL LIGHT WITHIN REACH. BED IN LOW POSITION. WILL CONTINUE TO MONITOR.
[2018-01-02] MEDS: BLOOD GLUCOSE MONITORING 1 DEV DEV FS SCH ×4 (08:27→21:13)
[2018-01-02] MEDS: PANTOPRAZOLE 40 MG INJ VIAL IVP SCH (08:38)
[2018-01-02] MEDS: ASCORBIC ACID 500 MG/5 ML ORASYR GT SCH (08:38)
[2018-01-02] MEDS: FERROUS SULFATE 300 MG/5 ML UDC GT SCH (08:38)
[2018-01-02] MEDS: LACTULOSE 20 GM/30 ML UDC PO SCH ×3 (08:39→17:39)
[2018-01-02] MEDS: DOCUSATE 100 MG/10 ML UDC PO SCH ×2 (08:39→21:00)
[2018-01-02] MEDS: LACTOBACILLUS RHAMNOSUS GG 1 EACH CAP PO SCH (09:05)
[2018-01-02] MEDS ORDERED: PROBIOTIC SCREEN 1 EA MISC MC PRN (09:05)
--- NOTE | 2018-01-02 10:00 | NUR ---
FAMILY AT BEDSIDE. PSYCHOLOGICAL SUPPORT PROVIDED NEEDED.
--- NOTE | 2018-01-02 10:20 | NUR ---
RT AT BEDSIDE. PT ON CPAP AT THIS TIME. FAMILY AT BEDSIDE. ON CONTINUOUS MONITORING.
--- NOTE | 2018-01-02 10:20 | NUR ---
PT PLACED ON CPAP 5 PS 10 BY RT-[facility]. [facility]. WILL CONTINUE TO MONITOR. Addendum: 01/02/18 at 1037 by Carlos Helm RT OBTAIN ABG 1 HOUR AFTER CPAP TRIAL IF PT TOLERATES SBT.
--- NOTE | 2018-01-02 10:43 | NUR ---
CONTINUE ON CPAP. PT TOLERATING WELL. SATURATING 100 %. NO ACUTE RESPIRATORY DISTRESS NOTED. NO CHANGE IN LOC. FAMILY AT BEDSIDE. WILL CONTINUE TO MONITOR.
--- NOTE | 2018-01-02 11:21 | NUR ---
ABG RESULTED. PAGED REGARDING ABG RESULTS AND PT STATUS, AWAITING CALL BACK. NURSE AWARE OF RESULTS.
[2018-01-02] MEDS: INSULIN LISPRO SLIDING SCALE 100 UNITS/ML VIAL SUBQ PRN ×2 (11:22→16:29)
--- NOTE | 2018-01-02 11:45 | NUR ---
01/02/18 RD INITIAL ASSESSMENT COMPLETED PLEASE REFER TO NUTRITION ASSESSMENT UNDER CARE ACTIVITY FOR ESTIMATED NUTRITIONAL NEEDS. 1. WHEN/IF MEDICALLY STABLE TO BEGIN NUTRITION SUPPORT, CONSIDER ADVANCING NG-TUBE FEED TO VITAL AF 1.2 @ GOAL RATE 60ML/H WITH 150ML H2O FLUSH Q4H -- INITIATE TF AT 5 ML/H AND INCREASE 5 ML Q6H -- AT GOAL RATE, NUTRITION SUPPORT WILL PROVIDE: 1803 KCAL (82% ESTIMATED ENERGY REQUIREMENTS), 108 GM PRO (100% ESTIMATED PROTEIN REQUIREMENTS), AND 1767 ML FLUID -- PT RECEIVING 75 KCAL/D FROM PROPOFOL 2. MONITOR ELECTROLYTES FOR REFEEDING SYNDROME 3. RD TO FOLLOW-UP 2-3 DAYS, HIGH RISK TORIBIO DUNN RD
--- NOTE | 2018-01-02 13:08 | NUR ---
PT ON CPAP TOLERATING WELL, VT ADEQUATE WITH RR WITHIN NORMAL LIMITS. RSBI ADEQUATE. WEANING PARAMETERS WITHIN NORMAL LIMITS NIF (-25) VC 1460 ml.
--- NOTE | 2018-01-02 13:10 | NUR ---
EXTUBATED. PT TOLERATING WELL. RR 24 SPO2 100%. HR 92 BP 102/72. ON O2 AT 5 LTR/MIN.
--- NOTE | 2018-01-02 13:12 | NUR ---
PER / PT EXTUBATED AND PLACED ON 3L NC. PT ABLE TO FOLLOW COMMANDS AND IS TOLERATING WELL AT THIS TIME. B.S ARE CLEAR BILATERALLY AND NO STRIDOR HEARD ON AUSCULTATION.
[2018-01-02] MEDS ORDERED: oxyCODONE/APAP 5/325 MG 1 TAB TAB PO PRN (14:45)
--- NOTE | 2018-01-02 16:43 | NUR ---
01/02/18 RD FOLLOW UP COMPLETED PLEASE REFER TO NUTRITION PROGRESS NOTE UNDER CARE ACTIVITY FOR ESTIMATED NUTRITIONAL NEEDS. 1. CONTINUE FULL LIQUID DIET TOLERATED 2. RECOMMEND ENSURE ENLIVE TID WITH MEALS 3. CONTINUE TO MONITOR WEIGHT CHANGES 4. RD TO FOLLOW-UP 2-3 DAYS, HIGH RISK TORIBIO DUNN, RD
--- NOTE | 2018-01-02 17:17 | NUR ---
PT RESTING IN BED. VS WNL. NO CHANGE IN LOC. WILL CONTINUE TO MONITOR.
[2018-01-02] MEDS: HYDROcodone/APAP 10/325 MG 1 TAB TAB PO PRN ×2 (17:36→22:14)
--- NOTE | 2018-01-02 19:23 | NUR ---
ENDORSED TO RADIATOR TESTER RN FOR CONTINUITY OF CARE. PT ON STABLE CONDITION.
--- NOTE | 2018-01-02 19:24 | NUR ---
RECEIVED PT FROM AM NURSE. PT AO X4. FOLLOWS COMMANDS. RESPONDS TO VERBAL AND TACTILE STIMULI. AFEBRILE. LUNG SOUNDS DIMINISHED. ON NC 2LPM. SR ON MONITOR. ABD SOFT, DISTENDED. FULL LIQUID DIET. BM AT THIS TIME WATERY, COPIOUS. F/C PATENT. IV SITE LEFT FA 22G. PATENT INTACT. BED IN LOWEST POSITION. SIDE RAILS UP X4. CALL LIGHT WITHIN REACH. WILL CONTINUE TO MONITOR.
[2018-01-02] MEDS ORDERED: Z-GUARD PASTE TP PRN (19:25)
--- NOTE | 2018-01-02 21:30 | NUR ---
DR. RHODES AT BEDSIDE AT THIS TIME. WILL CONTINUE TO FOLLOW UP ANY ADDITIONAL ORDERS.
--- NOTE | 2018-01-02 22:30 | NUR ---
PT HAD LARGE BM AT THIS TIME. LOOSE LIQUID STOOLS. GIVEN NORCO AT THIS TIME FOR PAIN.
--- NOTE | 2018-01-02 22:45 | NUR ---
WOUND REDNESS TO SACRAL COCCYX AREA NON-BLANCHABLE. COVERED WITH OPTIFORM AND OFFLOADED PRESSURE AREA AT THIS TIME. PICTURES TAKEN.
--- NOTE | 2018-01-02 23:55 | NUR ---
PT RESTING QUIETLY AT THIS TIME. NO SIGNS OF ACUTE DISTRESS NOTED. WILL CONTINUE TO MONITOR.
[2018-01-03] VITALS (10 sets, daily range): BP systolic 81–106; BP diastolic 38–69
[2018-01-03] MEDS: HYDRAGUARD CREAM TP SCH ×2 (00:44→12:24)
[2018-01-03] MEDS: Z-GUARD PASTE TP SCH ×2 (01:00→12:23)
--- NOTE | 2018-01-03 01:32 | NUR ---
PT HAD LARGE LIQUID BM AT THIS TIME. PT CLEANED DRESSING CHANGED. NO SIGNS OF ACUTE DISTRESS AT THIS TIME.
[2018-01-03] MEDS: HYDROcodone/APAP 10/325 MG 1 TAB TAB PO PRN ×3 (03:58→22:07)
[2018-01-03] MEDS: PIPER/TAZO 2.25GM/D5W PREMIX 50 ML IV SCH ×3 (04:02→20:26)
[2018-01-03] MEDS: HYDROCORTISONE NA SUCC 100 MG/2 ML VIAL IV SCH ×3 (04:02→20:26)
--- NOTE | 2018-01-03 04:08 | NUR ---
PT C/O PAIN AT THIS TIME FROM THE LIVER AREA. 09/25. NORCO 10/325MG PO PRN GIVEN AT THIS TIME. WILL REASSESS FOR PAIN LEVELS.
--- NOTE | 2018-01-03 05:10 | NUR ---
LAB AT BEDSIDE AT THIS TIME FOR AM BLOOD DRAWS. NO SIGNS OF ACUTE DISTRESS NOTED. WILL CONTINUE TO MONITOR.
[2018-01-03 05:36] LABS: LYMPHOCYTES # (AUTO) 0.3 K/uL (2.0-11.5)
[2018-01-03 05:47] LABS: BASOPHILS % (AUTO) 0.1 % (0.0-2.0); HEMATOCRIT 32.8 % (36-52); HEMOGLOBIN 10.9 g/dL (12.0-18.0); LYMPHOCYTES % (AUTO) 4.5 % (20.5-51.1); MEAN CORPUSCULAR HEMOGLOBIN 39 pg (27-31); MEAN CORPUSCULAR HGB CONC 33 g/dL (33-37); MEAN CORPUSCULAR VOLUME 116.4 fL (80-94); MONOCYTES # (AUTO) 0.6 K/uL (0.8-1.0); MONOCYTES % (AUTO) 10.7 % (1.7-9.3); NEUTROPHILS # (AUTO) 5.1 K/uL (1.8-7.7); NEUTROPHILS % (AUTO) 84.7 % (42.2-75.2); PLATELET COUNT (AUTO) 33 K/uL (140-450); RED BLOOD CELL COUNT(AUTO) 2.82 MIL/uL (4.20-6.10); RED CELL DISTRIBUTION WIDTH 21.8 % (11.6-13.7)
--- NOTE | 2018-01-03 05:47 | NUR ---
DR RHODES AT BEDSIDE TO SPEAK WITH PATIENT. WILL CONTINUE TO FOLLOW UP ANY ADDITIONAL ORDERS.
[2018-01-03 06:12] LABS: PROTHROMBIN TIME 15.5 secs (10.8-13.4)
--- NOTE | 2018-01-03 06:37 | NUR ---
DR JAMESON AT BEDSIDE TO EVALUATE PATIENT. UPDATED ON PATIENT'S CONDITION. NO SIGNS OF ACUTE DISTRESS AT THIS TIME. WILL CONTINUE TO FOLLOW UP ANY ADDITIONAL ORDERS.
[2018-01-03] MEDS: BLOOD GLUCOSE MONITORING 1 DEV DEV FS SCH ×4 (06:46→20:24)
[2018-01-03 07:02] LABS: ANION GAP 15.4 (8-16); CARBON DIOXIDE 18.8 mmol/L (21-32); CREATININE 1.4 mg/dL (0.7-1.3); POTASSIUM 3.2 mmol/L (3.5-5.1)
--- NOTE | 2018-01-03 07:13 | NUR ---
ENDORSED CARE TO INCOMING SHIFT. PT IN STABLE CONDITION. BED IN LOWEST POSITION. CALL LIGHT WITHIN REACH.
--- NOTE | 2018-01-03 07:20 | NUR ---
RECEIVED REPORT FROM NIGHT NURSE CHRISTINE. PT AWAKE AND ALERT X3. EYES REACTIVE TO LIGHT. SKIN WARM DRY AND INTACT. LUNG SOUND CLEAR BILATERALLY. S1S2 HEARD. BOWEL SOUNDS ACTIVE. REDNESS ON SACRAL AREA. EDEMA PRESENT ON BLE. JONES CATH IN PLACE. WILL CONTINUE TO MONITOR.
[2018-01-03 07:37] LABS: HEPATITIS B SURFACE ANTIGEN Negative (Negative)
[2018-01-03] MEDS: FERROUS SULFATE 300 MG/5 ML UDC GT SCH (09:36)
[2018-01-03] MEDS: DOCUSATE 100 MG/10 ML UDC PO SCH ×2 (09:36→20:26)
[2018-01-03] MEDS: ASCORBIC ACID 500 MG/5 ML ORASYR GT SCH (09:36)
[2018-01-03] MEDS: LACTULOSE 20 GM/30 ML UDC PO SCH ×3 (09:37→18:52)
[2018-01-03] MEDS: PANTOPRAZOLE 40 MG INJ VIAL IVP SCH (09:37)
[2018-01-03] MEDS: LACTOBACILLUS RHAMNOSUS GG 1 EACH CAP PO SCH (09:38)
[2018-01-03 11:01] LABS: MAGNESIUM 2.7 mg/dL (1.8-2.4); PHOSPHORUS 4.1 mg/dL (2.5-4.9)
[2018-01-03] MEDS ORDERED: oxyCODONE/APAP 5/325 MG 1 TAB TAB PO SCH (11:20)
[2018-01-03] MEDS: INSULIN LISPRO SLIDING SCALE 100 UNITS/ML VIAL SUBQ PRN (11:39)
--- NOTE | 2018-01-03 12:45 | NUR ---
DR AT BEDSIDE STATED THAT THEY MAY NOT BE ABLE TO PREFORM PARACENTESES TODAY. PATIENT AND FAMILY WAS CONCERNED BECAUSE THE PATIENT IS IN PAIN DUE TO THE DISTENTION. WILL FOLLOW UP
[2018-01-03] MEDS ORDERED: HYDROmorphone 1 MG/ML AMP IVP PRN (13:05)
--- NOTE | 2018-01-03 13:15 | NUR ---
PT NOTE 1313 RECEIVED ORDER FOR PT EVAL; CHART REVIEWED AND CLEARED FOR PT PER RN. Pt WAS SEEN AWAKE, EYES CLOSED BUT OPENS UPON INSTRUCTION; FAMILY PRESENT AT BEDSIDE. Pt STATES HE IS IN A LOT OF PAIN, WAS PRE-MEDICATED FOR PAIN EARLIER. EXPLAINED BENEFITS OF OOB TO PREVENT COMPLICATIONS OF PROLONGED BED REST, BUT Pt OPTED NOT TO PARTICIPATE WITH PT EVAL AT THIS TIME DUE TO PAIN. TENANT SELECTOR PRESENT AT BEDSIDE AWARE.
[2018-01-03] MEDS: oxyCODONE/APAP 5/325 MG 1 TAB TAB PO PRN (13:43)
[2018-01-03] MEDS ORDERED: oxyCODONE/APAP 5/325 MG 1 TAB TAB PO PRN (15:00)
--- NOTE | 2018-01-03 16:15 | NUR ---
PT IS UNABLE TO PERFORM IS
[2018-01-03] MEDS ORDERED: LIDOCAINE 2% 100 MG/5 ML SYR IVP SCH (16:22)
--- NOTE | 2018-01-03 16:40 | NUR ---
PARACENTESIS PREFORMED AT BEDSIDE. 6500 ML REMOVED. PT STABLE THROUGHOUT PROCEDURE.
[2018-01-03] MEDS ORDERED: LIDOCAINE/EPI 1% 1:100000 20 ML VIAL INJ SCH (18:00)
--- NOTE | 2018-01-03 19:20 | NUR ---
GAVE REPORT TO NIGHT NURSE. PT STABLE AND ALERT.
--- NOTE | 2018-01-03 19:30 | NUR ---
RECEIVED PT FROM MARLENY COTA AM SHIFT. PT IS ALERT,ORIENTED ,VERBAL RESPOND AT THIS TIME. PT ON O2 VIA N/C AT 2 LPM TOLERATED WELL. LUNGS SOUND BILATERALLY CLEAR.NO S/S OF RESP DISTRESS NO SOB NOTED.SR ON MONITOR.PT LOOK PALE,GENERALIZED EDEMA NOTED, PER REPORT PT HAS PARACENTESIS AND TOOK OUT 6500 ML OF FLUIDS.NO BLEEDING NOTED FROM THE PARACENTESIS SITE/RIGHT LOWER ABDOMEN. ABD SOFT NON DISTENDED. MARTIN AND SHASTA DAUGHTER AT BED SIDE.PT ABLE TO DRINKING WATER WELL WITH HELP.PT HAS X1 BM MODERATE LIQUID YELLOW COLOR. PT IS INCONTINENT BOWEL AND BLADDER.GENTLE CARE GIVEN. KEPT PT CLEAN AND DRY. REPOSITION PT FOR COMFORT.CALL LIGHT IN REACH
[2018-01-03 20:19] LABS: APPEARANCE,UNSPUN,BODY FLUID CLEAR (CLEAR); SPECIMENTYPE,BODY FLUID THORACENTESIS
[2018-01-03 20:20] LABS: APPEARANCE,SPUN,BODY FLUID CLEAR (CLEAR); COLOR,BODY FLUID YELLOW (LT YELLOW); RBC, BODY FLUID 70 /cu. mm.; TOTAL VOLUME,BODY FLUID 6500 mL; WBC, BODY FLUID 3 /cu. mm.
--- NOTE | 2018-01-03 20:30 | NUR ---
FROM [facility] COME AND SPEAK WITH MARTIN AND SHASTA DAUGHTER REGARDING PT CONDITION.
[2018-01-03] MEDS ORDERED: ALBUMIN HUMAN 25% 100 ML IV SCH (21:00)
--- NOTE | 2018-01-03 21:05 | NUR ---
PT C/O PAIN ABD AREA 8/10 PRN PAIN MEDS GIVEN AND REPOSITION FOR COMFORT . ALL NIGHT MEDS GIVEN TOLERATED WELL. BLOOD SUGAR VIA FINGER STICK RESULT 140 NO COVERAGE NEEDED.
[2018-01-03 21:45] LABS: GLUCOSE,BODY FLUID 164 mg/dL
--- NOTE | 2018-01-03 22:00 | NUR ---
PT SLEEPING NO S/S OF PAIN AT THIS TIME . PAIN LEVEL 0/10
[2018-01-04] VITALS: BP 79/48
--- NOTE | 2018-01-04 | NUR ---
REPOSITION FOR COMFORT.
[2018-01-04] MEDS: HYDRAGUARD CREAM TP SCH ×2 (01:18→12:28)
[2018-01-04] MEDS: Z-GUARD PASTE TP SCH ×2 (01:18→12:28)
--- NOTE | 2018-01-04 02:20 | NUR ---
PT SLEEPING NO S/S OF PAIN AT THIS TIME .
[2018-01-04 04:00] VITALS: BP 83/53
--- NOTE | 2018-01-04 04:30 | NUR ---
PT HAS LARGE PASTE YELLOW BM.PERIANAL CARE.F/C CARE GIVEN.AM CARE GIVEN, BED BATH GIVEN. KEPT CLEAN AND DRY.C/O PAIN PRN PAIN MEDS WAS GIVEN. PT ABLE TO HOLD THE CUP AND DRINK USING STRAW.
[2018-01-04] MEDS: HYDROCORTISONE NA SUCC 100 MG/2 ML VIAL IV SCH ×3 (04:57→20:27)
[2018-01-04] MEDS: PIPER/TAZO 2.25GM/D5W PREMIX 50 ML IV SCH ×3 (04:57→20:28)
[2018-01-04] MEDS: HYDROcodone/APAP 10/325 MG 1 TAB TAB PO PRN ×3 (04:58→16:58)
[2018-01-04] MEDS: BLOOD GLUCOSE MONITORING 1 DEV DEV FS SCH ×4 (06:58→21:27)
[2018-01-04] MEDS: INSULIN LISPRO SLIDING SCALE 100 UNITS/ML VIAL SUBQ PRN ×3 (06:59→16:29)
[2018-01-04] MEDS ORDERED: KCL 20 MEQ/WATER INJ PREMIX 200 ML IV SCH (07:00)
--- NOTE | 2018-01-04 07:00 | NUR ---
COME TO SEE RESIDENT
--- NOTE | 2018-01-04 07:00 | NUR ---
IV BAG NOT CHANGE STILL HAVE ABOUT 400 CC.
[2018-01-04] MEDS: NACL 0.9% 1,000 ML IV SCH (07:15)
--- NOTE | 2018-01-04 07:20 | NUR ---
RECEIVED REPORT FROM BUILDING CONSULTANT NURSE. PATIENT SLEEPING. EYES EQUAL AND REACTIVE TO LIGHT. SPEECH IS MUMBLED, A&O TO NAME AND LOCATION. LUNG SOUNDS CLEAR. S1S2 HEARD. BOWEL SOUNDS ACTIVE. SKIN WARM DRY AND INTACT. REDNESS ON SACRAL AREA. IV PATENT AND ASYMPTOMATIC. NO COMPLAINTS OF PAIN AT THIS TIME. REQUESTING TO SEE HIS . WILL CONTINUE TO MONITOR.
[2018-01-04 08:00] VITALS: BP 82/51
[2018-01-04 08:38] LABS: BASOPHILS % (AUTO) 0.2 % (0.0-2.0); HEMATOCRIT 29.1 % (36-52); HEMOGLOBIN 9.6 g/dL (12.0-18.0); LYMPHOCYTES # (AUTO) 0.3 K/uL (2.0-11.5); MEAN CORPUSCULAR HEMOGLOBIN 39 pg (27-31); MEAN CORPUSCULAR HGB CONC 33 g/dL (33-37); MEAN CORPUSCULAR VOLUME 116.8 fL (80-94); MONOCYTES # (AUTO) 0.4 K/uL (0.8-1.0); MONOCYTES % (AUTO) 6.1 % (1.7-9.3); NEUTROPHILS # (AUTO) 5.3 K/uL (1.8-7.7); PLATELET COUNT (AUTO) 29 K/uL (140-450); RED BLOOD CELL COUNT(AUTO) 2.49 MIL/uL (4.20-6.10); RED CELL DISTRIBUTION WIDTH 21.4 % (11.6-13.7); WHITE BLOOD COUNT (AUTO) 5.9 K/uL (4.8-10.8)
[2018-01-04] MEDS ORDERED: FER300L PO (08:56)
[2018-01-04] MEDS ORDERED: LACT10SO11 PO (08:56)
[2018-01-04] MEDS ORDERED: FERR325E14 PO (08:57)
[2018-01-04] MEDS: LACTULOSE 20 GM/30 ML UDC PO SCH ×3 (09:24→17:01)
[2018-01-04] MEDS: FERROUS SULFATE 300 MG/5 ML UDC GT SCH (09:24)
[2018-01-04] MEDS: DOCUSATE 100 MG/10 ML UDC PO SCH ×2 (09:25→20:34)
[2018-01-04] MEDS: LACTOBACILLUS RHAMNOSUS GG 1 EACH CAP PO SCH (09:25)
[2018-01-04] MEDS: ASCORBIC ACID 500 MG/5 ML ORASYR GT SCH (09:25)
[2018-01-04] MEDS: PANTOPRAZOLE 40 MG INJ VIAL IVP SCH (09:25)
[2018-01-04 09:44] LABS: LYMPHOCYTES % (AUTO) 4.3 % (20.5-51.1); NEUTROPHILS % (AUTO) 89.4 % (42.2-75.2)
--- NOTE | 2018-01-04 10:00 | NUR ---
DR JAMESON ASKED TO TAKE PATIENT OFF OF NC 2L. STOPPED O2 AND MONITORED SPO2. PT STABLE. SPO2 AT 100% ON ROOM AIR. RT NOTIFIED.
[2018-01-04 10:12] LABS: MAGNESIUM 2.5 mg/dL (1.8-2.4); PHOSPHORUS 4.6 mg/dL (2.5-4.9)
[2018-01-04 10:13] LABS: ANION GAP 19.3 (8-16); CARBON DIOXIDE 17.4 mmol/L (21-32); CREATININE 2.2 mg/dL (0.7-1.3); POTASSIUM 3.7 mmol/L (3.5-5.1)
[2018-01-04] MEDS ORDERED: ACET-5636 PO (10:31)
[2018-01-04] MEDS ORDERED: DOCU-299 PO (10:58)
[2018-01-04 12:00] VITALS: BP 82/55
--- NOTE | 2018-01-04 13:00 | NUR ---
DOCTORS AT BEDSIDE. SPOKE WITH PATIENTS FAMILY ABOUT HOSPICE. FAMILY WANTS TO TAKE PATIENT HOME AND GET CARE THERE. WILL FOLLOW UP
--- NOTE | 2018-01-04 13:31 | NUR ---
SPOKE WITH HOSPICE OF FAMILIES CHOOSING. WAITING TO HEAR BACK. WILL CONTINUE TO PURSUE MORE INFORMATION.
--- NOTE | 2018-01-04 15:44 | NUR ---
SPOKE WITH DON AT [facility] REGARDING STARTING CARE TOMORROW. WITH PERMISSION FROM FAMILY FAXED OVER FACE SHEET AND H&P. WILL FOLLOW UP.
[2018-01-04 16:00] VITALS: BP 82/56
--- NOTE | 2018-01-04 17:18 | NUR ---
SPOKE TO PATIENTS TO GET MORE INFORMATION ABOUT POSSIBLE DISCHARGE AND HOSPICE CARE TOMORROW. SHE EXPLAINED THAT THEY PLANNED TO HAVE TRANSPORTATION TO PICK HIM AT 11AM FRIDAY THE . RELAYED THE INFORMATION TO DR JAMESON.
[2018-01-04 18:28] LABS: FERRITIN 1016 ng/mL (30 - 400)
--- NOTE | 2018-01-04 19:10 | NUR ---
GAVE REPORT TO CHRISTINE FOR CONTINUITY OF CARE. PT ALERT AND STABLE.
--- NOTE | 2018-01-04 19:12 | NUR ---
RECEIVED REPORT FROM AM SHIFT. FAMILY AT BEDSIDE AO X 2. FOLLOWS COMMANDS. RESPONDS TO VERBAL AND TACTILE STIMULI. ON ROOM AIR. SR ON MONITOR. ABD SOFT, NONDISTENDED. F/C PATENT. DRAINING FREELY. REDNESS SACRAL COCCYX AREA NOTED. IV SITE LEFT FA PATENT. NO SIGNS OF ACUTE DISTRESS. SIDE RAILS UP X4. BED IN LOWEST POSITION. CALL LIGHT WITHIN REACH. WILL CONTINUE TO MONITOR.
[2018-01-04 20:00] VITALS: BP 84/60
--- NOTE | 2018-01-04 20:30 | NUR ---
PT HAD LARGE WATERY BM AT THIS TIME. PT CLEANED AND HYDRAGUARD AND Z-GUARD APPLIED.
--- NOTE | 2018-01-04 22:00 | NUR ---
PT HAD LARGE WATERY BM AT THIS TIME. PT CLEANED AND REPOSITIONED AT THIS TIME. NO SIGNS OF ACUTE DISTRESS NOTED
[2018-01-05] VITALS: BP 91/55
[2018-01-05] MEDS: HYDRAGUARD CREAM TP SCH ×2 (00:19→12:25)
[2018-01-05] MEDS: Z-GUARD PASTE TP SCH ×2 (00:19→12:25)
--- NOTE | 2018-01-05 00:23 | NUR ---
PT HAD LARGE WATERY BM AT THIS TIME. NO SIGNS OF ACUTE DISTRESS NOTED. CLEANED AND REPOSITIONED.
[2018-01-05] MEDS: HYDROcodone/APAP 10/325 MG 1 TAB TAB PO PRN ×2 (02:28→13:36)
--- NOTE | 2018-01-05 02:54 | NUR ---
PT C/O PAIN 12/26 TO ABD AREA. GIVEN NORCO PRN. AT THIS TIME IT IS NOTED PT HAD COPIOUS DIARRHEA. PT. CLEANED AND APPLIED HYDRAGUARD AND Z-GUARD TO AFFECTED AREAS. DRESSING TO SACRAL COCCYX AREA REPLACED WITH OPTIFOAM. WILL CONTINUE TO MONITOR.
[2018-01-05 04:00] VITALS: BP 82/51
[2018-01-05] MEDS: HYDROCORTISONE NA SUCC 100 MG/2 ML VIAL IV SCH ×2 (04:10→12:25)
[2018-01-05] MEDS: PIPER/TAZO 2.25GM/D5W PREMIX 50 ML IV SCH ×2 (04:11→12:23)
--- NOTE | 2018-01-05 04:30 | NUR ---
PT HAD LARGE BM AT THIS TIME. CLEANED AND AM CARE PROVIDED. WILL CONTINUE TO MONITOR.
--- NOTE | 2018-01-05 06:30 | NUR ---
DR. TAYLOR AT BEDSIDE TO EVALUATE PT. UPDATED ON PATIENTS CONDITION. WILL CONTINUE TO FOLLOWUP ANY ADDITIONAL ORDERS.
[2018-01-05] MEDS: BLOOD GLUCOSE MONITORING 1 DEV DEV FS SCH ×2 (06:42→11:50)
--- NOTE | 2018-01-05 07:10 | NUR ---
PT IS AWAKE, A&OX3, RESPONSIVE, ABLE TO EXPRESS NEEDS, AND COOPERATIVE. PERRLA. PT IS ON FULL LIQUID DIET. PT'S SPEECH IS CLEAR. PT HAS A RIGHT CHEST LILY CATH AND LEFT FOREARM 20 GAGES, FLUSHES, ASYMPTOMATIC, DRESSING DRY AND INTACT. ANASARCA; PITTING +2. S1S2 HEARD. LUNG SOUNDS DIMINISHED IN LOWER LOBES BILATERALLY AND CLEAR IN UPPER LOBES. ACTIVE BOWEL SOUNDS IN ALL 4 QUADRANTS, ABDOMEN IS ROUND, SOFT AND NONTENDER. PT IS ON EMERGENCY SERVICES DIRECTOR; NORMAL SINUS RHYTHM. PT'S SKIN IS INTACT BUT REDDENED AREA ON SACRAL-COCCYX DRESSED WITH OPTIFOAM DRESSING, LEFT THIGH HAS A REDDENED AREA DRESSED WITH OPTIFOAM, RIGHT WRIST HAS SKIN TEAR COVERED WITH VERSATEL. PT HAS JONES CATHETER (UROMETER) WITH YELLOW, CLEAR LIQUID FLUID IN DRAINAGE BAG. PT HAS ON YELLOW GOWN, YELLOW SOCKS AND FALL RISK PRECAUTION SIGN HANGING. PT WRIST BAND IS ON RIGHT HAND. BED IS LOCKED, ALARM ON, LOWEST POSITION. CALL LIGHT IS WITHIN REACH.
--- NOTE | 2018-01-05 07:12 | NUR ---
ENDORSED CARE TO INCOMING SHIFT FOR CONTINUITY OF CARE. BED IN LOWEST POSITION. NO SIGNS OF ACUTE DISTRESS NOTED.
[2018-01-05] MEDS: NACL 0.9% 1,000 ML IV SCH (07:15)
--- NOTE | 2018-01-05 07:21 | NUR ---
RECEIVED PATIENT ON ROOM AIR, SPO2 98%. PATIENT IS AWAKE AND RESPONSIVE BUT ALTERED. RN AT BEDSIDE. PATIENT CONFIRMS THAT HE IS COMFORTABLE WITH NO RESPIRATORY DISTRESS OR SOB. B/S: CLEAR BILATERALLY. Addendum: 01/05/18 at 0926 by Elvia Centeno RT PATIENT IS UNABLE TO PERFORM I.S. WILL FOLLOW UP AND CONTINUE TO MONITOR.
--- NOTE | 2018-01-05 07:30 | NUR ---
REMOVED RESTRAINTS; RASS -3. RESPONDS TO LIGHT PAIN. Addendum: 01/05/18 at 1350 by Nadira Jane RN wrong pt
[2018-01-05 08:00] VITALS: BP 76/45
--- NOTE | 2018-01-05 08:52 | NUR ---
at the bedside.
[2018-01-05] MEDS: LACTULOSE 20 GM/30 ML UDC PO SCH ×3 (09:00→12:24)
[2018-01-05] MEDS: DOCUSATE 100 MG/10 ML UDC PO SCH (09:00)
[2018-01-05] MEDS: ASCORBIC ACID 500 MG/5 ML ORASYR GT SCH (09:04)
[2018-01-05] MEDS: oxyCODONE/APAP 5/325 MG 1 TAB TAB PO PRN (09:04)
[2018-01-05] MEDS: LACTOBACILLUS RHAMNOSUS GG 1 EACH CAP PO SCH (09:05)
[2018-01-05] MEDS: PANTOPRAZOLE 40 MG INJ VIAL IVP SCH (09:05)
[2018-01-05] MEDS: FERROUS SULFATE 300 MG/5 ML UDC GT SCH (09:05)
[2018-01-05] MEDS ORDERED: ACET-5636 PO (09:07)
--- NOTE | 2018-01-05 09:10 | NUR ---
P.T. NOTES SPOKE WITH [facility] AND CONFIRMED PATIENT NOW UNDER HOSPICE CARE AND WILL DC TO HOME TODAY NO NEED FOR P.T.E [facility]QUIDEA.
--- NOTE | 2018-01-05 09:10 | NUR ---
spoke with hospice; pt will be leaving at 0436
[2018-01-05] MEDS ORDERED: PETROLATUM WHITE 30 GM TUBE TP SCH (09:35)
--- NOTE | 2018-01-05 11:45 | NUR ---
HOSPICE CALLED; THEY WILL BE SENDING [facility] TO COME GET PT; THEY HAVE MOVED THE TIME TO 1330
[2018-01-05 12:00] VITALS: BP 71/44
[2018-01-05 12:49] LABS: TRANSFERRIN 65 mg/dL (200-370)
--- NOTE | 2018-01-05 13:51 | NUR ---
GAVE REPORT TO [facility] STAFF; THEY ARE TAKING PT HOME FOR HOSPICE CARE FROM [facility].
--- NOTE | 2018-01-05 13:58 | NUR ---
PT ACCOMPANIED BY AND [facility] STAFF JUST LEFT ICU
== END 2018-01-05 13:58 | disposition hospice, home (50) | DRG 208 ==
LOC: MED 22:41 → MIC 12-31 01:53
PROVIDERS: ADMIT General Practice; ATTEND General Practice
PROC: 5A1945Z Respiratory Ventilation, 24-96 Consecutive Hours (ICD-10-PCS; 2017-12-30)
PROC: 0BH17EZ Insertion of Endotracheal Airway into Trachea, Via Natural or Artificial Opening (ICD-10-PCS; 2017-12-30)
PROC: 0W9G3ZZ Drainage of Peritoneal Cavity, Percutaneous Approach (ICD-10-PCS; principal; 2018-01-04)
DX: J96.01 Acute respiratory failure with hypoxia (principal); N17.0 Acute kidney failure with tubular necrosis; E43 Unspecified severe protein-calorie malnutrition; J69.0 Pneumonitis due to inhalation of food and vomit; C22.1 Intrahepatic bile duct carcinoma; E87.1 Hypo-osmolality and hyponatremia; D68.9 Coagulation defect, unspecified; E27.40 Unspecified adrenocortical insufficiency; E87.2 Acidosis; N17.9 Acute kidney failure, unspecified; R18.8 Other ascites; I48.92 Unspecified atrial flutter; K72.90 Hepatic failure, unspecified without coma; E86.0 Dehydration; D53.9 Nutritional anemia, unspecified; D69.6 Thrombocytopenia, unspecified; E83.41 Hypermagnesemia; E87.5 Hyperkalemia; E11.9 Type 2 diabetes mellitus without complications; K21.9 Gastro-esophageal reflux disease without esophagitis; G89.29 Other chronic pain; I10 Essential (primary) hypertension; I25.10 Atherosclerotic heart disease of native coronary artery without angina pectoris; Z51.5 Encounter for palliative care; Z66 Do not resuscitate; Z79.52 Long term (current) use of systemic steroids; Z68.28 Body mass index [BMI] 28.0-28.9, adult; Z85.05 Personal history of malignant neoplasm of liver; Z86.13 Personal history of malaria; Z88.1 Allergy status to other antibiotic agents; Z88.8 Allergy status to other drugs, medicaments and biological substances
CPT/HCPCS: 31500; 36415; 36600; 49083; 70450; 71045; 76705; 76770; 80048; 80053; 80305; 82140; 82150; 82550; 82553; 82607; 82728; 82746; 82803; 82945; 82948; 83036; 83540; 83605; 83615; 83690; 83735; 83880; 84100; 84157; 84439; 84443; 84484; 85025; 85045; 85610; 85730; 86592; 86702; 86803; 86886; 86900; 86901; 87040; 87070; 87075; 87081; 87086; 87186; 87205; 87340; 89051; 93005; 94003; 96361; 96365; 96375; 99285; C9113; G0482; J0330; J1720; J1815; J2001; J2543; J2704; J3480; J3490; J7030; J7060; P9046; Q0092